=== PATIENT | male | born 1985 | race Caucasian/White ===

== ENCOUNTER 2020-03-26 20:31 | Emergency (ER) | payer OTHER, BC ==
[~2020-03-26] VITALS: Ht 165.1 cm; Wt 72.3 kg
[2020-03-26 22:48] VITALS: BP 108/73
== END 2020-03-26 22:48 | disposition home or self-care (01) | DRG 552 ==
LOC: ED 20:31
DX: S16.1XXA Strain of muscle, fascia and tendon at neck level, initial encounter (principal); V53.5XXA Driver of pick-up truck or van injured in collision with car, pick-up truck or van in traffic accident, initial encounter; W22.11XA Striking against or struck by driver side automobile airbag, initial encounter